=== PATIENT | male | born 1990 | race African-American/Black ===

== ENCOUNTER 2022-10-21 10:10 | Emergency (ER) | payer BC, SELFPAY | END 2022-10-21 12:00 | disposition home or self-care (01) | LOC: CSHERS 10:10 | DX: S62.111A Displaced fracture of triquetrum [cuneiform] bone, right wrist, initial encounter for closed fracture (principal); M21.931 Unspecified acquired deformity of right forearm; W19.XXXA Unspecified fall, initial encounter; Y93.61 Activity, american tackle football ==